=== PATIENT | female | born 1950 | race Caucasian/White ===

== ENCOUNTER 2023-05-05 05:50 | Day surgery (SDC) | payer OTHER ==
[~2023-05-05 05:50] MED LIST: ACTOS15 MG; ALL DAY ALLERGY10 M3 PO; ASA81 MG; ATACAND16 MG; ATACAND32 MG PO; ATORVASTATIN CA40 MG PO; FAMOTI PO; HYDROCHLOROTH12.5 MG PO; ISOSORBIDE DINI30 MG; LEVOTHYROXINE25 MCG PO; NORVASC2.5 MG; PLAVIX75 MG; PROBIO PO; TOPROL XL50 M1 PO
[2023-05-05] MEDS ORDERED: NABUMETONE750 MG PO (09:48)
[2023-05-05] MEDS ORDERED: PERCOCET 5-3251 EACH PO (09:50)
== END 2023-05-05 15:20 | disposition home or self-care (01) ==
LOC: CIR.AMB 05:50
PROVIDERS: ATTEND Orthopaedic Surgery
DX: S83.201A Bucket-handle tear of unspecified meniscus, current injury, left knee, initial encounter (principal); M67.52 Plica syndrome, left knee; M22.42 Chondromalacia patellae, left knee; I10 Essential (primary) hypertension; Z20.822 Contact with and (suspected) exposure to COVID-19